=== PATIENT | female | born 1935 | race Caucasian/White ===

== ENCOUNTER 2017-06-18 18:37 | Observation (INO) | payer OTHER ==
[~2017-06-18] VITALS: Ht 162.6 cm; Wt 72.1 kg
[~2017-06-18 18:37] MED LIST: GLIPIZIDE5 MG PO; ZESTORETIC 20-1 EAC1 NG
[2017-06-18 20:03] LABS: BASOPHIL (%) 0.2 % (0-1); EOSINOPHIL (%) 0.1 % (0-5); HEMOGLOBIN 13.6 G/DL (11.9-15.5); IMMATURE GRANULOCYTE (%) 1.1 % (0.0-0.7); LYMPHOCYTE (%) 14.6 % (15-42); LYMPHOCYTE COUNT 1.5 K/uL (1.0-2.8); MCH 29.7 PG (29.0-34.0); MCV 87.3 FL (83-99); MONOCYTE (%) 5.3 % (3-12); MONOCYTE COUNT 0.6 K/uL (0-0.8); NEUTROPHIL (%) 78.7 % (45-76); NEUTROPHIL COUNT 8.3 K/uL (1.8-6.4); PLATELET COUNT 259 K/uL (156-360); RBC DIS.WIDTH-CV 13.2 % (11.8-14.6); RBC DIS.WIDTH-SD 42.5 % (39-53); RED BLOOD COUNT 4.58 M/uL (3.80-5.20); WHITE BLOOD COUNT 10.5 K/uL (4.1-10.2)
[2017-06-18 20:12] LABS: ALBUMIN 4.3 g/dL (3.2-4.8); CHLORIDE 103 mEq/L (99-109); POTASSIUM 3.9 mEq/L (3.7-5.4); SODIUM 139 mEq/L (136-147)
[2017-06-18 20:14] LABS: GLUCOSE 188 mg/dL (70-99)
[2017-06-18 20:15] LABS: TOTAL PROTEIN 7.7 g/dL (6.4-8.3)
[2017-06-18 20:16] LABS: TOTAL BILIRUBIN 0.5 mg/dL (0.0-1.0)
[2017-06-18 20:18] LABS: ALKALINE PHOSPHATASE 63 IU/L (3-129); CREATININE 0.9 mg/dL (0.6-1.3); GFR ESTIMATE (CALCULATED) > 59 mL/min/
[2017-06-18 20:19] LABS: UREA NITROGEN (BUN) 24 mg/dL (9-23)
[2017-06-18 20:20] LABS: AST (GOT) 26 IU/L (2-34)
[2017-06-18 20:21] LABS: ALT (GPT) 38 IU/L (3-49)
[2017-06-18 20:24] LABS: TROP-I INTERPRETATION NEGATIVE; TROPONIN-I 0.01 ng/mL (0.0-0.30)
[2017-06-18 20:45] LABS: APPEARANCE CLEAR ((CLEAR)); BILIRUBIN NEGATIVE; BLOOD NEGATIVE; COLOR STRAW ((YELLOW)); GLUCOSE (STRIP) >=500; KETONES NEGATIVE; LEUKOCYTES NEGATIVE; NITRITE NEGATIVE; PROTEIN (STRIP) 30; SPECIFIC GRAVITY 1.011 (1.000-1.030); UROBILINOGEN 0.2 MG/DL (0.2-1.0)
[2017-06-18] MEDS ORDERED: GLUCOTROL XL10 MG PO (21:47)
[2017-06-18] MEDS ORDERED: LEVEMIR FL100 UNIT/1 SC (21:49)
[2017-06-18] MEDS ORDERED: AMLODIPINE BESYL5 MG PO (21:51)
[2017-06-18] MEDS ORDERED: LEVOTHYROXINE100 MCG PO (21:51)
[2017-06-18] MEDS ORDERED: PREDNISONE20 MG PO (21:52)
[2017-06-18] MEDS ORDERED: BENZONATATE200 MG PO (21:53)
[2017-06-18] MEDS ORDERED: CODEINE-GUAIFE120 ML PO (21:53)
[2017-06-18] MEDS ORDERED: TYLENOL EXTRA500 MG PO (21:55)
[2017-06-18] MEDS ORDERED: LUMIGAN 0.50 DROP/22 BOTH EYES (21:56)
[2017-06-19] VITALS (7 sets, daily range): BP systolic 101–196; BP diastolic 59–88
[2017-06-19 00:49] LABS: HEMATOCRIT 38.9 % (36.0-46.0); HEMOGLOBIN 13.7 G/DL (11.9-15.5); MCH 30.6 PG (29.0-34.0); MCHC 35.2 G/DL (30.0-36.0); PLATELET COUNT 268 K/uL (156-360); RBC DIS.WIDTH-CV 13.2 % (11.8-14.6); RBC DIS.WIDTH-SD 42.1 % (39-53); RED BLOOD COUNT 4.47 M/uL (3.80-5.20); WHITE BLOOD COUNT 12.1 K/uL (4.1-10.2)
[2017-06-19 00:58] LABS: INTER. NORMALIZED RATIO 1.1
[2017-06-19 01:00] LABS: PTT 25.1 SEC (25-37)
[2017-06-19 01:36] LABS: HDL CHOLESTEROL 37 MG/DL (Desirable>=50); LDL CHOLESTEROL 133 mg/dL (Desirable<100); NON-HDL CHOLESTEROL 165 mg/dL (Desirable<160); TOTAL CHOLESTEROL 202 mg/dL (Desirable<200); TRIGLYCERIDES 158 MG/DL (Normal: <150)
[2017-06-19 05:33] LABS: TROP-I INTERPRETATION NEGATIVE; TROPONIN-I 0.03 ng/mL (0.0-0.30)
[2017-06-19 09:16] LABS: HEMOGLOBIN A1c (GLYCOHEMOGLOB) 7.4 % (Below 5.7)
[2017-06-19 12:42] LABS: TROP-I INTERPRETATION NEGATIVE; TROPONIN-I 0.04 ng/mL (0.0-0.30)
[2017-06-20 04:00] VITALS: BP 118/63
[2017-06-20 07:10] VITALS: BP 113/62
[2017-06-20 11:44] VITALS: BP 133/67
[2017-06-20] MEDS ORDERED: AMLODIPINE BESY10 MG PO (11:54)
[2017-06-20] MEDS ORDERED: ANTIVERT25 MG PO (11:54)
[2017-06-20] MEDS ORDERED: ASPIR-LOW81 MG PO (15:09)
== END 2017-06-20 16:35 ==
LOC: EME 18:37 → EDOF 21:38 → 5WEST 21:38 → EDOF 21:38 → ENRESERV 21:43 → 5WEST 06-19 00:57
PROVIDERS: Emergency Medicine; Hospitalist
DX: H81.10 Benign paroxysmal vertigo, unspecified ear (principal); R11.2 Nausea with vomiting, unspecified; I65.22 Occlusion and stenosis of left carotid artery; E11.9 Type 2 diabetes mellitus without complications; I10 Essential (primary) hypertension; E03.9 Hypothyroidism, unspecified; R32 Unspecified urinary incontinence; D68.9 Coagulation defect, unspecified; M19.90 Unspecified osteoarthritis, unspecified site; Z79.82 Long term (current) use of aspirin; Z88.0 Allergy status to penicillin; Z88.2 Allergy status to sulfonamides
CPT/HCPCS: 70450; 70551; 71045; 71275; 80053; 80061; 81003; 82948; 83036; 84484; 85025; 85027; 85379; 85610; 85730; 93005; 93880; 93970; 97530 GO; 99281; 99285; G0378; G8978 GP CJ; G8979 GP CI; G8980 CJ; G8987 GO CJ; G8988 CI; G8988 GO CH; G8989 CJ; J1644; J2405; J2765; J7030